=== PATIENT | female | born 1980 | race Caucasian/White ===

== ENCOUNTER 2018-08-03 10:30 | Observation (INO) ==
[2018-08-03 10:38] VITALS: BMI 35.2
[2018-08-03 11:03] LABS: BASOPHILS # (AUTO) 0.1 X10^3/uL (0.0-0.1); BASOPHILS % (AUTO) 1.4 % (0.2-1.0); EOSINOPHILS # (AUTO) 0.2 x10^3/uL (0.0-0.2); EOSINOPHILS % (AUTO) 2.6 % (0.9-2.9); HEMATOCRIT 44.6 % (36.0-47.0); HEMOGLOBIN 15.3 g/dL (12.0-16.0); LYMPHOCYTES # (AUTO) 2.6 X10^3/uL (1.3-2.9); LYMPHOCYTES % (AUTO) 37.8 % (21.0-51.0); MEAN CORPUSCULAR HEMOGLOBIN 29.3 pg (27.0-34.0); MEAN CORPUSCULAR HGB CONC 34.3 g/dL (33.0-35.0); MEAN CORPUSCULAR VOLUME 85.4 fL (80.0-100.0); MEAN PLATELET VOLUME 8.9 fL (7.4-11.0); MONOCYTES # (AUTO) 0.3 x10^3/uL (0.3-0.8); MONOCYTES % (AUTO) 4.9 % (0.0-13.0); NEUTROPHILS # (AUTO) 3.6 x10^3/uL (2.2-4.8); NEUTROPHILS % (AUTO) 53.3 % (42.0-75.0); PLATELET COUNT 260 X10^3/uL (150.0-450.0); RED BLOOD COUNT 5.22 X10^6/uL (3.5-5.4); RED CELL DISTRIBUTION WIDTH 13.6 % (11.6-16.5); WHITE BLOOD COUNT 6.8 X10^3/uL (3.6-10.0)
[2018-08-03] MEDS ORDERED: ASPIRIN ONE (11:09)
[2018-08-03] MEDS: NITROSTAT SL PRN ×2 (11:15→18:20)
[2018-08-03] MEDS: NS 1000 ML 1,000 ML IV SCH ×2 (11:17→21:20)
--- NOTE | 2018-08-03 11:17 | RAD ---
HISTORY: Cough. Asthma. Chest pain. Single portable view of the chest. Comparison: None. Findings: The trachea is midline. The cardiac silhouette is unremarkable. The lungs are hyperinflated with increased perihilar interstitial opacities and associated bronchial cuffing; findings which can be seen with asthma/bronchitis of the tracheobronchial tree versus small airways disease. Please correlate. However, there is no lobar pneumonia or pulmonary mass. The lungs are otherwise clear without focal infiltrate or pleural effusion. The bony thorax is unremarkable. IMPRESSION: No infiltrate, CHF, or effusion seen. Radiographic findings of small airways disease, as above. Reported By:
[2018-08-03 11:19] LABS: BLOOD UREA NITROGEN 9 mg/dL (7-18); CALCIUM 8.1 mg/dL (8.5-10.1); CARBON DIOXIDE 29.7 mmol/L (21-32); CHLORIDE 105 mmol/L (98-107); COR NA(FOR HYPERGLY) 141 mmol/L (136-145); CREATININE 0.69 mg/dL (0.55-1.02); SODIUM 140 mmol/L (136-145); TROPONIN I < 0.02 ng/mL (0-1.5); eGFR NON BLACK RACES > 60 (>60)
[2018-08-03 11:24] LABS: ALANINE AMINOTRANSFERASE 24 Units/L (12-78); ALBUMIN 3.5 g/dL (3.4-5.0); ALKALINE PHOSPHATASE 82 Units/L (46-116); ASPARTATE AMINO TRANSFERASE 22 Units/L (15-37); CKMB % 1.2 % (<4); CREATINE KINASE 81 Units/L (26-192); CREATINE KINASE MB < 1.0 ng/mL (0-4.0); TOTAL PROTEIN 7.3 g/dL (6.4-8.2)
--- NOTE | 2018-08-03 11:34 | DR.CP ---
HPI Time Seen Time Seen by Provider: 08/03/18 10:59 PCP Primary Care Physician: STORMANT Complaint Chief Complaint Doctor Comments: Patient presents with complaint of intermittent chest pain for three weeks. Has been seen by her primary care physician during this time. Saw physician two weeks ago. and today. Admits to left arm numbness for 3 weeks. Had MRI last week normal. Chief Complaint:: PT. C/O LEFT SIDED CHEST PAIN THAT RADIATES TO LEFT ARM X 3 WEEKS. PAIN IS INTERMITTENT. PT. DESCRIBES THE CHEST PAIN HEAVINESS. PT. STATES HER LEFT ARM FEELS NUMB, HEAVY, AND COLD. 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 Past Surgical History Comment: TUBAL LIGATION Family History History of Family Medical Conditions: Yes Family Medical History: [place] and Coronary Artery Disease Social History Does patient currently use any type of tobacco product: No Have you used tobacco products in the last 12 months: No Type of Tobacco Use: None Does any household member use tobacco: No Alcohol Use: None Do you use any recreational Drugs:: No Lives With: Spouse Lives Where: Home infectious screening In the last 2 months have you had wt loss of >10#?: NO Have you had fever, night sweats or hemotysis?: No Have you traveled outside the country in the last 6 months?: No Isolation: Standard PE Vitals Vitals: Temperature 97.1 F Pulse Rate [Apical] 54 Pulse Rate 60 Respiratory Rate 17 Blood Pressure [Left Arm] 103/65 Blood Pressure 119/70 O2 Sat by Pulse Oximetry 100 General Limitations: No Limitations General Appearance: Alert and In No Apparent Distress; negative In Distress Head Head Exam: Normal Inspection, Atraumatic and Normocephalic Eyes Eye exam: Normal Appearance, PERRL and EOMI ENT ENT Exam: Normal Exam and Normal Oropharynx Chest Chest Inspection: Normal Inspection and Symmetric Chest Wall Rise Respiratory Respiratory Exam: Normal Lung Sounds Bilat Respiratory Exam: Bilateral: Clear to Auscultation Cardiovascular Cardiovascular Exam: Regular Rate and Bradycardia Pulse: Normal and Radial Abdominal Exam Abdominal Exam: Normal Inspection, Normal Bowel Sounds and Soft Abdominal Tenderness: RUQ, RLQ and LUQ Extremities Extremities Exam: Normal Inspection and Full ROM Back Back Exam: Normal Inspection and Full ROM Neurologic Neurological Exam: Alert, Oriented X3 and CN II-XII Intact Psychiatric Psychiatric Exam: Normal Affect and Normal Mood Skin Skin Exam: Warm, Dry, Intact and Normal Color ROR Labs Reviewed Laboratory Results Reviewed?: Yes Result Diagrams: 08/03/18 10:55 08/03/18 10:55 Laboratory: WBC 6.8 X10^3/uL (3.6-10.0) 08/03/18 10:55 RBC 5.22 X10^6/uL (3.5-5.4) 08/03/18 10:55 Hgb 15.3 g/dL (12.0-16.0) 08/03/18 10:55 Hct 44.6 % (36.0-47.0) 08/03/18 10:55 MCV 85.4 fL (80.0-100.0) 08/03/18 10:55 MCH 29.3 pg (27.0-34.0) 08/03/18 10:55 MCHC 34.3 g/dL (33.0-35.0) 08/03/18 10:55 RDW 13.6 % (11.6-16.5) 08/03/18 10:55 Plt Count 260 X10^3/uL (150.0-450.0) 08/03/18 10:55 MPV 8.9 fL (7.4-11.0) 08/03/18 10:55 Neut % (Auto) 53.3 % (42.0-75.0) 08/03/18 10:55 Lymph % (Auto) 37.8 % (21.0-51.0) 08/03/18 10:55 [place] % (Auto) 4.9 % (0.0-13.0) 08/03/18 10:55 Eos % (Auto) 2.6 % (0.9-2.9) 08/03/18 10:55 Baso % (Auto) 1.4 % (0.2-1.0) H 08/03/18 10:55 Neut # (Auto) 3.6 x10^3/uL (2.2-4.8) 08/03/18 10:55 Lymph # (Auto) 2.6 X10^3/uL (1.3-2.9) 08/03/18 10:55 [place] # (Auto) 0.3 x10^3/uL (0.3-0.8) 08/03/18 10:55 Eos # (Auto) 0.2 x10^3/uL (0.0-0.2) 08/03/18 10:55 Baso # (Auto) 0.1 X10^3/uL (0.0-0.1) 08/03/18 10:55 Absolute Nucleated RBC 0.0 /100WBC 08/03/18 10:55 Sodium 140 mmol/L (136-145) 08/03/18 10:55 Corrected Sodium 141 mmol/L (136-145) 08/03/18 10:55 Potassium 4.0 mmol/L (3.5-5.1) 08/03/18 10:55 Chloride 105 mmol/L (98-107) 08/03/18 10:55 Carbon Dioxide 29.7 mmol/L (21-32) 08/03/18 10:55 BUN 9 mg/dL (7-18) 08/03/18 10:55 Creatinine 0.69 mg/dL (0.55-1.02) 08/03/18 10:55 Est GFR (MDRD) Af Amer > 60 (>60) 08/03/18 10:55 Est GFR (MDRD) Non-Af > 60 (>60) 08/03/18 10:55 Glucose 122 mg/dL (65-99) H 08/03/18 10:55 Calcium 8.1 mg/dL (8.5-10.1) L 08/03/18 10:55 Corrected Calcium TNP 08/03/18 10:55 Total Bilirubin 0.40 mg/dL (0.2-1.0) 08/03/18 10:55 AST 22 Units/L (15-37) 08/03/18 10:55 ALT 24 Units/L (12-78) 08/03/18 10:55 Alkaline Phosphatase 82 Units/L (46-116) 08/03/18 10:55 Creatine Kinase 81 Units/L (26-192) 08/03/18 10:55 CK-MB (CK-2) < 1.0 ng/mL (0-4.0) 08/03/18 10:55 CK/CKMB % Calc 1.2 % (<4) 08/03/18 10:55 Troponin I < 0.02 ng/mL (0-1.5) 08/03/18 10:55 Total Protein 7.3 g/dL (6.4-8.2) 08/03/18 10:55 Albumin 3.5 g/dL (3.4-5.0) 08/03/18 10:55 Globulin 3.8 g/dL (2.5-4.5) 08/03/18 10:55 Albumin/Globulin Ratio 0.9 Ratio (1.1-2.1) L 08/03/18 10:55 XRAY XRAY Findings: No infiltrate, CHF or effusion seen
--- NOTE | 2018-08-03 12:17 | DR.CP ---
HPI Time Seen Time Seen by Provider: 08/03/18 10:59 PCP Primary Care Physician: STORMANT Complaint Chief Complaint Doctor Comments: Patient admits to chest pain left side for three weeks; radiates to left arm. She has been seen by her primary care emre dejesus during these episode most recent prior today was two weeks ago. Today she was referred to the ED because of abnormal EKG bradycardia. Patient admits to frequent episodes of slow heart rate since child. Not aware of any workup. Chief Complaint:: PT. C/O LEFT SIDED CHEST PAIN THAT RADIATES TO LEFT ARM X 3 WEEKS. PAIN IS INTERMITTENT. PT. DESCRIBES THE CHEST PAIN HEAVINESS. PT. STATES HER LEFT ARM FEELS NUMB, HEAVY, AND COLD. 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 Past Surgical History Comment: TUBAL LIGATION Family History History of Family Medical Conditions: Yes Family Medical History: [place] and Coronary Artery Disease Social History Does patient currently use any type of tobacco product: No Have you used tobacco products in the last 12 months: No Type of Tobacco Use: None Does any household member use tobacco: No Alcohol Use: None Do you use any recreational Drugs:: No Lives With: Spouse Lives Where: Home infectious screening In the last 2 months have you had wt loss of >10#?: NO Have you had fever, night sweats or hemotysis?: No Have you traveled outside the country in the last 6 months?: No Isolation: Standard PE Vitals Vitals: Temperature 98.1 F Pulse Rate [Left Brachial] 50 Pulse Rate [Apical] 59 Pulse Rate 60 Respiratory Rate 16 Blood Pressure [Left Arm] 109/54 Blood Pressure 119/70 O2 Sat by Pulse Oximetry 99 General Limitations: No Limitations General Appearance: Alert, In No Apparent Distress and In Distress Head Head Exam: Normal Inspection, Atraumatic and Normocephalic Eyes Eye exam: Normal Appearance, PERRL and EOMI ENT ENT Exam: Normal Exam, Normal Oropharynx and Normal External Ear Exam Chest Chest Inspection: Normal Inspection and Symmetric Chest Wall Rise Respiratory Respiratory Exam: Normal Lung Sounds Bilat Respiratory Exam: Bilateral: Clear to Auscultation Cardiovascular Cardiovascular Exam: Regular Rate and Normal Rhythm Pulse: Normal Edema: Normal Abdominal Exam Abdominal Exam: Normal Inspection Extremities Extremities Exam: Normal Inspection and Normal Capillary Refill; negative Joint Swelling Back Back Exam: Normal Inspection and Tenderness (mid low back) Neurologic Neurological Exam: Alert, Oriented X3 and CN II-XII Intact Psychiatric Psychiatric Exam: Normal Affect and Normal Mood Skin Skin Exam: Warm and Dry COURSE Consultation Called: 11:50 Consultation Comments: Dr Mirza agreed to admit for chest pain r/o protocol ROR Labs Reviewed Laboratory Results Reviewed?: Yes Result Diagrams: 08/03/18 10:55 08/03/18 10:55 Laboratory: WBC 6.8 X10^3/uL (3.6-10.0) 08/03/18 10:55 RBC 5.22 X10^6/uL (3.5-5.4) 08/03/18 10:55 Hgb 15.3 g/dL (12.0-16.0) 08/03/18 10:55 Hct 44.6 % (36.0-47.0) 08/03/18 10:55 MCV 85.4 fL (80.0-100.0) 08/03/18 10:55 MCH 29.3 pg (27.0-34.0) 08/03/18 10:55 MCHC 34.3 g/dL (33.0-35.0) 08/03/18 10:55 RDW 13.6 % (11.6-16.5) 08/03/18 10:55 Plt Count 260 X10^3/uL (150.0-450.0) 08/03/18 10:55 MPV 8.9 fL (7.4-11.0) 08/03/18 10:55 Neut % (Auto) 53.3 % (42.0-75.0) 08/03/18 10:55 Lymph % (Auto) 37.8 % (21.0-51.0) 08/03/18 10:55 [place] % (Auto) 4.9 % (0.0-13.0) 08/03/18 10:55 Eos % (Auto) 2.6 % (0.9-2.9) 08/03/18 10:55 Baso % (Auto) 1.4 % (0.2-1.0) H 08/03/18 10:55 Neut # (Auto) 3.6 x10^3/uL (2.2-4.8) 08/03/18 10:55 Lymph # (Auto) 2.6 X10^3/uL (1.3-2.9) 08/03/18 10:55 [place] # (Auto) 0.3 x10^3/uL (0.3-0.8) 08/03/18 10:55 Eos # (Auto) 0.2 x10^3/uL (0.0-0.2) 08/03/18 10:55 Baso # (Auto) 0.1 X10^3/uL (0.0-0.1) 08/03/18 10:55 Absolute Nucleated RBC 0.0 /100WBC 08/03/18 10:55 INR Target Range - 08/03/18 10:55 INR 0.95 (0.8-1.3) 08/03/18 10:55 APTT 24.6 SECONDS (22.9-36.5) 08/03/18 10:55 PTT Comment - 08/03/18 10:55 Sodium 140 mmol/L (136-145) 08/03/18 10:55 Corrected Sodium 141 mmol/L (136-145) 08/03/18 10:55 Potassium 4.0 mmol/L (3.5-5.1) 08/03/18 10:55 Chloride 105 mmol/L (98-107) 08/03/18 10:55 Carbon Dioxide 29.7 mmol/L (21-32) 08/03/18 10:55 BUN 9 mg/dL (7-18) 08/03/18 10:55 Creatinine 0.69 mg/dL (0.55-1.02) 08/03/18 10:55 Est GFR (MDRD) Af Amer > 60 (>60) 08/03/18 10:55 Est GFR (MDRD) Non-Af > 60 (>60) 08/03/18 10:55 Glucose 122 mg/dL (65-99) H 08/03/18 10:55 Calcium 8.1 mg/dL (8.5-10.1) L 08/03/18 10:55 Corrected Calcium TNP 08/03/18 10:55 Total Bilirubin 0.40 mg/dL (0.2-1.0) 08/03/18 10:55 AST 22 Units/L (15-37) 08/03/18 10:55 ALT 24 Units/L (12-78) 08/03/18 10:55 Alkaline Phosphatase 82 Units/L (46-116) 08/03/18 10:55 Creatine Kinase 61 Units/L (26-192) 08/03/18 22:52 CK-MB (CK-2) < 1.0 ng/mL (0-4.0) 08/03/18 22:52 CK/CKMB % Calc 1.6 % (<4) 08/03/18 22:52 Troponin I < 0.02 ng/mL (0-1.5) 08/03/18 22:52 Total Protein 7.3 g/dL (6.4-8.2) 08/03/18 10:55 Albumin 3.5 g/dL (3.4-5.0) 08/03/18 10:55 Globulin 3.8 g/dL (2.5-4.5) 08/03/18 10:55 Albumin/Globulin Ratio 0.9 Ratio (1.1-2.1) L 08/03/18 10:55 Other Results Comments: Chest: No infiltrate, CHF or effusion seen. Radiographic findings of small airways disease. Diagnosis Discharge Problem: Chest pain ADDITIONAL NOTES Additional Notes Additional Notes: Patient is to be admitted chest pain protocol
[2018-08-03 17:31] LABS: CKMB % 1.6 % (<4); CREATINE KINASE 63 Units/L (26-192); CREATINE KINASE MB < 1.0 ng/mL (0-4.0)
[2018-08-03 17:47] LABS: TROPONIN I 0.02 ng/mL (0-1.5)
[2018-08-03] MEDS: LYRICA CAP 75 MG PO SCH (21:23)
[2018-08-03] MEDS: CYMBALTA PO SCH (21:23)
[2018-08-03 23:22] LABS: CKMB % 1.6 % (<4); CREATINE KINASE 61 Units/L (26-192); CREATINE KINASE MB < 1.0 ng/mL (0-4.0); TROPONIN I < 0.02 ng/mL (0-1.5)
[2018-08-04] MEDS: NS 1000 ML 1,000 ML IV SCH (06:05)
[2018-08-04 06:22] LABS: BASOPHILS # (AUTO) 0.1 X10^3/uL (0.0-0.1); BASOPHILS % (AUTO) 0.8 % (0.2-1.0); EOSINOPHILS # (AUTO) 0.2 x10^3/uL (0.0-0.2); EOSINOPHILS % (AUTO) 2.6 % (0.9-2.9); HEMATOCRIT 40.7 % (36.0-47.0); HEMOGLOBIN 13.9 g/dL (12.0-16.0); LYMPHOCYTES # (AUTO) 2.8 X10^3/uL (1.3-2.9); MEAN CORPUSCULAR HEMOGLOBIN 29.2 pg (27.0-34.0); MEAN CORPUSCULAR HGB CONC 34.2 g/dL (33.0-35.0); MEAN CORPUSCULAR VOLUME 85.2 fL (80.0-100.0); MEAN PLATELET VOLUME 8.9 fL (7.4-11.0); MONOCYTES # (AUTO) 0.3 x10^3/uL (0.3-0.8); MONOCYTES % (AUTO) 4.4 % (0.0-13.0); NEUTROPHILS # (AUTO) 3.4 x10^3/uL (2.2-4.8); NEUTROPHILS % (AUTO) 50.2 % (42.0-75.0); PLATELET COUNT 244 X10^3/uL (150.0-450.0); RED BLOOD COUNT 4.77 X10^6/uL (3.5-5.4); RED CELL DISTRIBUTION WIDTH 13.2 % (11.6-16.5); WHITE BLOOD COUNT 6.7 X10^3/uL (3.6-10.0)
[2018-08-04 06:56] LABS: ALANINE AMINOTRANSFERASE 19 Units/L (12-78); ALBUMIN 2.9 g/dL (3.4-5.0); ALKALINE PHOSPHATASE 69 Units/L (46-116); ASPARTATE AMINO TRANSFERASE 15 Units/L (15-37); BLOOD UREA NITROGEN 9 mg/dL (7-18); CALCIUM 7.5 mg/dL (8.5-10.1); CARBON DIOXIDE 25.9 mmol/L (21-32); CHLORIDE 107 mmol/L (98-107); CHOL/HDL RATIO 6.2 (0.0-5.0); CHOLESTEROL 180 mg/dL (0-200); COR CA(FOR HYPOALB) 8.4 mg/dL (8.5-10.1); COR NA(FOR HYPERGLY) 142 mmol/L (136-145); CREATININE 0.69 mg/dL (0.55-1.02); HDL CHOLESTEROL 29 mg/dL (40-60); SODIUM 142 mmol/L (136-145); TRIGLYCERIDES 233 mg/dL (0-150); eGFR NON BLACK RACES > 60 (>60)
[2018-08-04 08:09] VITALS: BP 121/62
[2018-08-04] MEDS: LYRICA CAP 75 MG PO SCH (08:42)
[2018-08-04] MEDS: CYMBALTA PO SCH (08:42)
[2018-08-04] MEDS ORDERED: DAPAGLIFLOZIN METFORMIN PO SCH (09:00)
[2018-08-04] MEDS ORDERED: LIORESAL PO SCH (09:00)
[2018-08-04] MEDS ORDERED: DIFLUCAN PO SCH (09:00)
[2018-08-04] MEDS ORDERED: ASPIRIN PO ONE (11:00)
--- NOTE | 2018-08-13 20:36 | DR.CARTERS ---
Short Stay Summary - Admission Date Date of Admission: 08/03/18 - Discharge Date Discharge Date: 08/04/18 - Admission Diagnoses (1) Chest pain, rule out acute myocardial infarction Status: Acute - Hospital Course Hospital Course: IS A 38 YEAR OLD WHITE FEMALE WHO PRESENTED TO THE EMERGENCY ROOM WITH COMPLAINTS OF LEFT SIDED CHEST PAIN THAT RADIATES TO THE LEFT ARM X 3 WEEKS. SHE DESCRIBED PAIN HEAVINESS AND INTERMITTENT. SHE STATED THAT HER LEFT ARM IS NUMB, HEAVY, AND COLD. ON ARRIVAL, VITALS WERE 97.1-60-18-99%-119/70. LABS WERE OBTAINED. CARDIAC ENZYMES WERE OBTAINED AND WERE WITHIN NORMAL LIMITS. EKG REVEALED: SINUS RHYTHM WITH HR 54. CHEST XRAY REVEALED: NO INFILTRATE, CHF, OR EFFUSION SEEN. SHE WAS ADMITTED FOR FURTHER EVALUATION AND TREATMENT. SHE WAS STARTED ON NORMAL SALINE AT 125ML/HR, NITROSTAT 0.4MG SL Q5M PRN PAIN, AND HOME MEDICATIONS WERE RESUMED. WE PLANNED TO FOLLOW UP WITH SERIAL CARDIAC ENZYMES AND EKGS AND CONTINUE TO MONITOR PATIENT. ON THE MORNING FOLLOWING ADMISSION, PATIENT IS ALERT AND ORIENTED, LYING IN BED ON MORNING ROUNDS. SHE DENIES CHEST PAIN AND REPORTS FEELING WELL TODAY. HER VITALS THIS MORNING ARE 98.4-70-18-96%-121/62. LABS WERE OBTAINED. ABNORMAL LAB VALUES INCLUDE THE FOLLOWING: GLUCOSE 119, CALCIUM 7.5, TOTAL PROTEIN 6.0, ALBUMIN 2.9, TRIGLYCERIDES 233, LDL 104, HDL 29, CHOLESTEROL/HCL RATIO 6.2. CARDIAC ENZYMES WITHIN NORMAL LIMITS. NO CHANGES NOTED TO EKGS. WE PLANNED FOR DISCHARGE. INSTRUCTIONS FOR MEDICATIONS AND FOLLOW-UP GIVEN TO PATIENT. SHE WAS GIVEN A NEW PRESCRIPTION FOR ECOTRIN 325MG PO DAILY AND INSTRUCTED TO FOLLOW UP IN THE OFFICE ON 08/10/18 AT 9:50 AM. SHE VERBALIZED UNDERSTANDING OF ORDERS. SHE WAS DISCHARGED HOME IN STABLE CONDITION WITH FAMILY. - Discharge Medications Discharge Medications: Home Medication List baclofen 10 mg PO DAILY 08/03/18 [History] dapagliflozin-metformin [Xigduo XR] 1 tab PO DAILY 08/03/18 [History] diclofenac sodium 1 applic TOPICAL BID 08/03/18 [History] duloxetine 30 mg PO BID 08/03/18 [History] gemfibrozil 600 mg PO DAILY 08/03/18 [History] montelukast 10 mg PO QDAY 08/03/18 [History] pregabalin [Lyrica] 75 mg PO BID 08/03/18 [History] aspirin [Ecotrin] 325 mg PO DAILY #30 tab 08/04/18 [Rx] Prescriptions: aspirin [Ecotrin] Jan Mirza - Discharge Plan Disposition: HOME, SELF-CARE Condition: Stable Prescriptions: aspirin [Ecotrin] 325 mg PO DAILY #30 tab - Follow up/Referrals Follow up/Referrals: Jan Mirza [STAFF PHYSICIAN] - 08/04/18 9:50 am - Instructions Instructions: Chest Wall Pain, [id number] Additional Instructions: diet as tolerated. activity as tolerated. Forms: Patient Portal
== END 2018-08-04 10:37 | disposition home or self-care (01) ==
LOC: ER 10:33 → MED/SURG 10:33
PROVIDERS: ADMIT Internal Medicine; ATTEND Internal Medicine
DX: E11.65 Type 2 diabetes mellitus with hyperglycemia; R07.89 Other chest pain; J44.9 Chronic obstructive pulmonary disease, unspecified; E78.2 Mixed hyperlipidemia
CPT/HCPCS: 36415; 71010; 71045; 80053; 80061; 82550; 82553; 84484; 85025; 85610; 85730; 93005; 93010; 94760; 96365; 96367; 99284; A4222; G0378; J7030